=== PATIENT | female | born 1940 | race Caucasian/White ===

== ENCOUNTER → 2016-08-05 | Outpatient (CLI) | payer MEDICARE, OTHER | LOC: RAD 09:58 | PROVIDERS: ATTEND Urology | DX: R31.29 Other microscopic hematuria (principal) | CPT/HCPCS: 74178; 82565 ==

== ENCOUNTER 2018-10-10 18:29 | Emergency (ER) | payer MEDICARE, OTHER ==
--- NOTE | 2018-10-10 20:14 | ER Document Report ---
ED Medical Screen (RME) - General Chief Complaint: Fall Injury Stated Complaint: FALL Time Seen by Provider: 10/10/18 20:12 Primary Care Provider: MERT MILES [Primary Care Provider] - Follow up as needed Mode of Arrival: Medic Information source: Patient TRAVEL OUTSIDE OF THE [place] IN LAST 30 DAYS: No - HPI Patient complains to provider of: fall- hit head Onset: Just prior to arrival - pt tripped at home and hit head. No LOC. EMS transported here for further evaluation - Related Data Allergies/Adverse Reactions: No Known Drug Allergies Allergy (Verified 11/19/15 18:47) Past Medical History Pulmonary Medical History: Reports: Hx Asthma GI Medical History: Reports: Hx Diverticulitis, Hx Gastroesophageal Reflux Disease, Hx Irritable Bowel. Denies: Hx Crohn's Disease, Hx Ulcerative Colitis Musculoskeltal Medical History: Reports Hx Arthritis, Reports Hx Fibromyalgia Psychiatric Medical History: Reports: Hx Depression Past Surgical History: Reports: Hx Abdominal Surgery - bladder tack, Hx Orthopedic Surgery - back - Immunizations Hx Diphtheria, Pertussis, Tetanus Vaccination: Yes Physical Exam - Vital signs Vitals: Temp Pulse Resp BP Pulse Ox 98.8 F 87 16 134/83 H 96 10/10/18 19:13 10/10/18 19:13 10/10/18 19:13 10/10/18 19:13 10/10/18 19:13 Course - Vital Signs Vital signs: Temp Pulse Resp BP Pulse Ox 98.8 F 87 16 134/83 H 96 10/10/18 19:13 10/10/18 19:13 10/10/18 19:13 10/10/18 19:13 10/10/18 19:13 Doctor's Discharge - Discharge Referrals: MERT MILES [Primary Care Provider] - Follow up as needed
--- NOTE | 2018-10-10 21:21 | RADIOLOGY REPORT (SQ) ---
EXAM DESCRIPTION: CT HEAD WITHOUT IV CONTRAST COMPLETED DATE/TME: 10/10/2018 20:12 CLINICAL HISTORY: 77 years, Female, fall This exam was performed according to our departmental dose-optimization program which includes automated exposure control, adjustment of the mA and/or kVp according to patient size and/or use of iterative reconstruction technique where applicable. Findings: No acute intracranial hemorrhage, mass effect or midline shift. Ventricles and subarachnoid spaces are mildly dilated consistent with cerebral atrophy. Mild patchy hypodense areas in the periventricular white matter of both cerebral hemispheres consistent with chronic small vessel ischemic changes. Visualized paranasal sinuses and the mastoid air cells are clear. The skull is intact. IMPRESSION: No acute intracranial hemorrhage. Mild chronic ischemic changes.
--- NOTE | 2018-10-10 22:08 | ER Document Report ---
ED General - General Chief Complaint: Fall Injury Stated Complaint: FALL Time Seen by Provider: 10/10/18 20:12 Primary Care Provider: MERT MILES [Primary Care Provider] - Follow up as needed Mode of Arrival: Medic Notes: Patient is a 77-year-old female who presents with complaint of trip and fall. She says she did fall and hit her head. She has swelling on her forehead. She does note swelling over the lip. No pain with extraocular motion of the eyes. She did also put her hands out to catch herself. Says she has little soreness over the ulnar aspect of her hand but she is able to fully flex and extend her fingers. No pain into the wrist. No other complaints at this time patient denies any pain to the hips or legs. Says the fall was mechanical. TRAVEL OUTSIDE OF THE [place] IN LAST 30 DAYS: No - Related Data Allergies/Adverse Reactions: No Known Drug Allergies Allergy (Verified 11/19/15 18:47) Past Medical History - General Information source: Patient - Social History Smoking Status: Never Smoker Frequency of alcohol use: None Drug Abuse: None Family History: Reviewed & Not Pertinent Patient has suicidal ideation: No Patient has homicidal ideation: No Pulmonary Medical History: Reports: Hx Asthma Renal/ Medical History: Denies: Hx Peritoneal Dialysis GI Medical History: Reports: Hx Diverticulitis, Hx Gastroesophageal Reflux Disease, Hx Irritable Bowel. Denies: Hx Crohn's Disease, Hx Ulcerative Colitis Musculoskeletal Medical History: Reports Hx Arthritis, Reports Hx Fibromyalgia Psychiatric Medical History: Reports: Hx Depression Past Surgical History: Reports: Hx Abdominal Surgery - bladder tack, Hx Orthopedic Surgery - back - Immunizations Hx Diphtheria, Pertussis, Tetanus Vaccination: Yes Hx Pneumococcal Vaccination: 08/03/10 Review of Systems - Review of Systems Notes: My Normal Review Basic REVIEW OF SYSTEMS: CONSTITUTIONAL : Denies fever, chills, or sweats. Denies recent illness. CARDIOVASCULAR: Denies chest pain. RESPIRATORY: Denies cough, cold, or chest congestion. Denies shortness of breath, difficulty breathing, or wheezing. GASTROINTESTINAL: Denies abdominal pain. Denies nausea, vomiting, or diarrhea. MUSCULOSKELETAL: Mild pain in hands. SKIN: Denies rash or skin lesions. NEUROLOGICAL: Denies altered mental status or loss of consciousness. mild headache. Denies weakness or paralysis or loss of use of either side. Denies problems with gait or speech. Denies sensory or motor loss. ALL OTHER SYSTEMS REVIEWED AND NEGATIVE. Physical Exam - Vital signs Vitals: Temp Pulse Resp BP Pulse Ox 98.8 F 87 16 134/83 H 96 10/10/18 19:13 10/10/18 19:13 10/10/18 19:13 10/10/18 19:13 10/10/18 19:13 - Notes Notes: General Appearance: Well nourished, alert, cooperative, no acute distress, no obvious discomfort. Vitals: reviewed, See vital signs table. Head: Small amount of swelling above the right eyebrow. Eyes: PERRL, EOMI, Conjuctiva clear Mouth: No decreasd moisture Lungs: No wheezing, No rales, No rhonci, No accessory muscle use, good air exchange bilaterally. Heart: Normal rate, Regular rythm, No murmur, no rub Neck: Patient is not have any significant pain to palpation of her neck. She says she has some chronic arthritis but no new pain with palpation of the neck. No step-offs deformities or swelling to the neck. Back: No significant tenderness of thoracic or lumbar spine. Abdomen: Normal BS, soft, No rigidity, No abdominal tenderness, No guarding, no rebound, no abdominal masses, no organomegaly Extremities: strength 5/5 in all extremities, good pulses in all extremities, no swelling to the hyperthenar eminence of the right hand. No significant pain to palpation of the right hand. Left hand has a small amount of pain to palpation over the fifth metacarpal however is very minimal and there is no obvious deformity the patient is able to fully flex and extend her fingers without difficulty. No pain to palpation of either wrist. Remainder of extremities are nontender. Patient is full range of motion of hips and knees without pain. Skin: warm, dry, appropriate color, no rash Neuro: speech clear, oriented x 3, normal affect, responds appropriately to questions. Cranial nerves II through XII are intact. Distal sensation intact. Patient moves all extremities without difficulty. Course - Re-evaluation Re-evalutation: 10/10/18 22:07 Patient has some bruising over the forehead on the right side. Lip is swelling of his over the superior orbit however the patient has no pain with extraocular motion and no signs of trauma to the eye with remainder of the face except for small bruising on the lip. She is able to fully open and close her jaw without pain or difficulty. She looks well. CT scan of the head is negative. She has some chronic arthritis in her neck but no new pain from the fall and she is full range of motion of her neck without difficulty. The only other area that she has pain on exam she has a bit of pain in her right hand on the ulnar aspect however she does not have significant pain when I pushed firmly over the metacarpal bones and she says that the pain is just mild. She also has full range of motion of all the fingers of both hands and good opposition with the thumb at the pinky finger. I do not feel she needs an x-ray at this time. Wrist is nontender. No scaphoid tenderness on either wrist. At this time for the patient states be discharged home. I told her that despite having a normal CT scan that some people on rare occasions can still have a delayed bleed on the brain therefore she should have a low threshold to return to the ER if she has severe headache or vomiting or feels unwell in any way. Patient agrees with plan and will be discharged home. Dictation of this chart was performed using voice recognition software; therefore, there may be some unintended grammatical errors. - Vital Signs Vital signs: Temp Pulse Resp BP Pulse Ox 97.7 F 91 18 111/80 99 10/10/18 22:28 10/10/18 22:28 10/10/18 22:28 10/10/18 22:28 10/10/18 22:28 Discharge - Discharge Clinical Impression: Minor head injury Qualifiers: Encounter type: initial encounter Qualified Code(s): S09.90XA - Unspecified injury of head, initial encounter Condition: Good Disposition: HOME, SELF-CARE Additional Instructions: Your CT scan today was normal. Despite having a normal CT scan you should still have a low threshold to return to the ER if you have severe headache or vomiting or feel unwell in any way. Please follow-up with your doctor this week as scheduled for reevaluation. Return to the ER if you have any further concerns. Referrals: MERT MILES [Primary Care Provider] - Follow up as needed
[2018-10-10 23:37] VITALS: BP 111/80
== END 2018-10-10 22:30 | disposition home or self-care (01) ==
LOC: ER 18:29
DX: S09.90XA Unspecified injury of head, initial encounter (principal); R22.0 Localized swelling, mass and lump, head; M79.641 Pain in right hand; W01.0XXA Fall on same level from slipping, tripping and stumbling without subsequent striking against object, initial encounter
CPT/HCPCS: 70450; 99283

== ENCOUNTER 2019-08-25 10:04 | Emergency (ER) | payer MEDICARE, OTHER ==
--- NOTE | 2019-08-25 10:21 | ER Document Report ---
ED Medical Screen (RME) - General Chief Complaint: Head Injury Stated Complaint: FALL/HEAD INJURY Time Seen by Provider: 08/25/19 10:14 Primary Care Provider: MERT MILES [Primary Care Provider] - Follow up as needed Information source: Patient Notes: Patient states that she tripped and fell 2 days ago hitting her face on the rug. Patient complains of anterior chest pain after the fall, right shoulder pain, right facial pain bruising and swelling. Patient denies any loss of consciousness nausea or vomiting. Patient does take Eliquis after having a previous PE. I have greeted and performed a rapid initial assessment of this patient. A comprehensive ED assessment and evaluation of the patient, analysis of test results and completion of the medical decision making process will be conducted by additional ED providers. TRAVEL OUTSIDE OF THE [place] IN LAST 30 DAYS: No - Related Data Allergies/Adverse Reactions: No Known Drug Allergies Allergy (Verified 11/27/18 15:37) Home Medications: Eliquis Past Medical History - Social History Frequency of alcohol use: None Drug Abuse: None Pulmonary Medical History: Reports: Hx Asthma Renal/ Medical History: Denies: Hx Peritoneal Dialysis GI Medical History: Reports: Hx Diverticulitis, Hx Gastroesophageal Reflux Disease, Hx Irritable Bowel. 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 Anterior chest wall tenderness, no ecchymosis Course - Vital Signs Vital signs: Temp Pulse Resp BP Pulse Ox 97.6 F 103 H 18 153/76 H 95 08/25/19 10:08/25/19 10:08/25/19 10:08/25/19 10:08/25/19 10:09 Doctor's Discharge - Discharge Referrals: MERT MILES [Primary Care Provider] - Follow up as needed
--- NOTE | 2019-08-25 11:21 | RADIOLOGY REPORT (SQ) ---
EXAM DESCRIPTION: CT HEAD WITHOUT COMPLETED DATE/TIME: 08/25/2019 11:05 am REASON FOR STUDY: fall, head injury COMPARISON: 10/10/2018. TECHNIQUE: Axial images acquired through the brain without intravenous contrast. Images reviewed wi th bone, brain and subdural windows. Additional sagittal and coronal reconstructions were generated. Images stored on PACS. All CT scanners at this facility use dose modulation, iterative reconstruction, and/or weight based d osing when appropriate to reduce radiation dose to as low as reasonably achievable (ALARA). [facility]: Dose Right [facility]: CareDose [facility]: Dose Right [facility]: Teradose 4D [facility]: Synker RADIATION DOSE: CT Rad equipment meets quality standard of care and radiation dose reduction techniq ues were employed. CTDIvol: 53.2 mGy. DLP: 1044 mGy-cm. mGy. LIMITATIONS: None. FINDINGS: VENTRICLES: Prominent. CEREBRUM: No masses. No hemorrhage. No midline shift. Areas of low density in the white matter mos t likely due to chronic micro-vascular ischemic change. No evidence for acute infarction. CEREBELLUM: No masses. No hemorrhage. No alteration of density. No evidence for acute infarction. EXTRAAXIAL SPACES: Mild age-related involutional change. No fluid collections. No masses. ORBITS AND GLOBE: No intra- or extraconal masses. Normal contour of globe without masses. CALVARIUM: No fracture. PARANASAL SINUSES: No fluid or mucosal thickening. SOFT TISSUES: No mass or hematoma. OTHER: No other significant finding. IMPRESSION: MILD CHRONIC CHANGES OF ATROPHY AND MICROVASCULAR ISCHEMIA. NO ACUTE PROCESS. EVIDENCE OF ACUTE STROKE: NO. TECHNICAL DOCUMENTATION: JOB ID: [id number] Quality ID # [id number]: Final reports with documentation of one or more dose reduction techniques (e.g., Au tomated exposure control, adjustment of the mA and/or kV according to patient size, use of iterative reconstruction technique) 2010 [employer]- All Rights Reserved Reading location - IP/workstation name: [email or web address]
--- NOTE | 2019-08-25 11:23 | RADIOLOGY REPORT (SQ) ---
EXAM DESCRIPTION: CT FACIAL AREA WITHOUT COMPLETED DATE/TIME: 08/25/2019 11:05 am REASON FOR STUDY: fall, cp COMPARISON: None. TECHNIQUE: Noncontrasted images through the facial bones and orbits windowed for bone and soft tissu e. Additional coronal and sagittal reconstructed images reviewed. All images stored on PACS. All CT scanners at this facility use dose modulation, iterative reconstruction, and/or weight based d osing when appropriate to reduce radiation dose to as low as reasonably achievable (ALARA). [facility]: Dose Right [facility]: CareDose [facility]: Dose Right [facility]: Teradose 4D [facility]: Adioso RADIATION DOSE: CT Rad equipment meets quality standard of care and radiation dose reduction techniq ues were employed. CTDIvol: 30.4 mGy. DLP: 555 mGy-cm. mGy. LIMITATIONS: None. FINDINGS: FACIAL BONES: No fracture or bone lesion. ORBITS: Intact. No fracture. Symmetric intact globes and retroorbital soft tissues. PARANASAL SINUSES: No fluid. Mucosal nodule in the right maxillary sinus. No nasal polyps. Maxillar y sinus outlets are patent. SOFT TISSUES: Soft tissue swelling overlying the right orbit. INFERIOR BRAIN: Limited view. No acute findings. OTHER: No other significant finding. IMPRESSION: SOFT TISSUE SWELLING OVERLYING THE RIGHT ORBIT. NO FRACTURE OR OTHER ACUTE FINDINGS. TECHNICAL DOCUMENTATION: JOB ID: [id number] Quality ID # [id number]: Final reports with documentation of one or more dose reduction techniques (e.g., Au tomated exposure control, adjustment of the mA and/or kV according to patient size, use of iterative reconstruction technique) 2010 [employer]- All Rights Reserved Reading location - IP/workstation name: [email or web address]
--- NOTE | 2019-08-25 11:29 | RADIOLOGY REPORT (SQ) ---
EXAM DESCRIPTION: SHOULDER RIGHT 2 OR MORE VIEWS COMPLETED DATE/TIME: 08/25/2019 11:21 am REASON FOR STUDY: fall, r shoulder injury COMPARISON: None. NUMBER OF VIEWS: Three views. TECHNIQUE: Internal rotation, external rotation, and Y view images acquired of the right shoulder. LIMITATIONS: None. FINDINGS: MINERALIZATION: Normal. BONES: No acute fracture. No worrisome bone lesions. JOINTS: No dislocation. VISUALIZED LUNGS AND RIBS: No pneumothorax. No rib fracture. SOFT TISSUES: No radiopaque foreign body. OTHER: No other significant finding. IMPRESSION: NEGATIVE STUDY OF THE RIGHT SHOULDER. NO RADIOGRAPHIC EVIDENCE OF ACUTE INJURY. TECHNICAL DOCUMENTATION: JOB ID: [id number] [employer]- All Rights Reserved Reading location - IP/workstation name: [email or web address]
--- NOTE | 2019-08-25 12:00 | RADIOLOGY REPORT (SQ) ---
EXAM DESCRIPTION: CHEST 2 VIEWS COMPLETED DATE/TIME: 08/25/2019 10:52 am REASON FOR STUDY: fall, cp COMPARISON: 11/19/2015 EXAM PARAMETERS: NUMBER OF VIEWS: two views TECHNIQUE: Digital Frontal and Lateral radiographic views of the chest acquired. RADIATION DOSE: NA LIMITATIONS: none FINDINGS: LUNGS AND PLEURA: No opacities, masses or pneumothorax. No pleural effusion. MEDIASTINUM AND HILAR STRUCTURES: No masses or contour abnormalities. HEART AND VASCULAR STRUCTURES: Heart normal size. No evidence for failure. BONES: No acute findings. HARDWARE: None in the chest. OTHER: No other significant finding. IMPRESSION: NO ACUTE RADIOGRAPHIC FINDING IN THE CHEST. TECHNICAL DOCUMENTATION: JOB ID: [id number] [employer]- All Rights Reserved Reading location - IP/workstation name: [email or web address]
--- NOTE | 2019-08-25 12:52 | EKG REPORT ---
SEVERITY:- OTHERWISE NORMAL ECG - SINUS TACHYCARDIA LEFT AXIS DEVIATION : Confirmed by: Ramy Swanson MD 25-Aug-2019 12:51:18
--- NOTE | 2019-08-25 12:56 | ER Document Report ---
ED General - General Chief Complaint: Head Injury Stated Complaint: FALL/HEAD INJURY Time Seen by Provider: 08/25/19 10:14 Primary Care Provider: ALICE HOWARD MD [Primary Care Provider] - Follow up tomorrow (prn) MERT MILES [NO LOCAL MD] - Follow up in 3-5 days (prn) TRAVEL OUTSIDE OF THE [place] IN LAST 30 DAYS: No - HPI Notes: 78-year-old female presents emergency room for evaluation of right orbital pain with a dull headache 2 days after tripping while she was at her house. Patient is on blood thinners for a pulmonary embolism that she was diagnosed with in November 2018. Denies worse headache of her life . patient called her primary care doctor today, they advised her to go the emergency room over the phone for evaluation since she is on blood thinners after falling. Patient denies any head trauma, states she hit her face on the side where her glasses were which did create some ecchymosis around her orbital bone. Denies any change in level consciousness. Patient states she did land on the right side of her face with her glasses, and as well on her chest. Denies fevers, chills, chest pain,palpitations, shortness of breath, dyspnea, nausea, vomiting, diarrhea, abdominal pain, hematuria,blurred vision, double vision, loss of vision, speech changes, LH, dizziness, syncope, wheezing, ST, URI, neck pain, weakness, bowel or bladder dysfunction, saddle anesthesia, numbness or tingling in bilateral upper or lower extremities equally, muscle paralysis, weakness in bilateral upper or lower extremities equally or rash. - Related Data Allergies/Adverse Reactions: No Known Drug Allergies Allergy (Verified 11/27/18 15:37) Home Medications: Eliquis Past Medical History - General Information source: Patient - Social History Smoking Status: Unknown if Ever Smoked Frequency of alcohol use: None Drug Abuse: None Family History: Reviewed & Not Pertinent Patient has suicidal ideation: No Patient has homicidal ideation: No Pulmonary Medical History: Reports: Hx Asthma Renal/ Medical History: Denies: Hx Peritoneal Dialysis GI Medical History: Reports: Hx Diverticulitis, Hx Gastroesophageal Reflux Disease, Hx Irritable Bowel. Denies: Hx Crohn's Disease, Hx Ulcerative Colitis Musculoskeletal Medical History: Reports Hx Arthritis - RA/OA, Reports Hx Fibromyalgia Psychiatric Medical History: Reports: Hx Depression Past Surgical History: Reports: Hx Abdominal Surgery - bladder tack, Hx Orthopedic Surgery - back - Immunizations Hx Diphtheria, Pertussis, Tetanus Vaccination: Yes Hx Pneumococcal Vaccination: 08/03/10 Review of Systems - Review of Systems Constitutional: No symptoms reported EENT: No symptoms reported Cardiovascular: No symptoms reported Respiratory: No symptoms reported Gastrointestinal: No symptoms reported Genitourinary: No symptoms reported Female Genitourinary: No symptoms reported Musculoskeletal: See HPI Skin: No symptoms reported Hematologic/Lymphatic: No symptoms reported Neurological/Psychological: See HPI Physical Exam - Vital signs Vitals: Temp Pulse Resp BP Pulse Ox 97.6 F 103 H 18 153/76 H 95 08/25/19 10:09 08/25/19 10:09 08/25/19 10:08/25/19 10:08/25/19 10:09 - Notes Notes: PHYSICAL EXAMINATION: reviewed vital signs by RN GENERAL: Well-appearing, well-nourished and in no acute distress. HEAD: Atraumatic, normocephalic. Ecchymosis to right orbital area, no open wounds or drainage. EYES: Pupils equal round and reactive to light, extraocular movements intact, conjunctiva are normal. ENT: Nares patent, oropharynx clear without exudates. Moist mucous membranes. NECK: Normal range of motion, supple without lymphadenopathy. full APROM of cervical spine, no noted domingo cervical spinal tenderness on palpation from C4-C5, but noted parapsinal tenderness from C5-C6 on right. negative spurlings test. Boilermaker Pipe Fitter + 2 bilaterally and equally. Dtr +2 bilaterally and equally in BUE. Perrla, full eomi. Face symmetrical. No rashes observed. Point tenderness to right paraspinal muscles near C6. No lymphadenopathy. Full APROM with shoulders. TM intact bilaterally. No meningismus. No noted lymphadenopathy. LUNGS: Breath sounds clear to auscultation bilaterally and equal. No wheezes rales or rhonchi. HEART: Regular rate and rhythm without murmurs ABDOMEN: Soft, nontender, nondistended abdomen. No guarding, no rebound. No masses appreciated. Female : deferred Musculoskeletal: Normal range of motion, no pitting or edema. No cyanosis. Tenderness to right shoulder joint on palpation, full range of motion of shoulder, muscle strength 5 out of 5 bilateral upper extremities equally. Boilermaker Pipe Fitter +2 in bilateral upper extremities equally, full motor and sensory function of bilateral upper extremities equally. Normal abduction abduction of shoulder. Right elbow exam normal, no tenderness on palpation of the joint. NEUROLOGICAL: Cranial nerves grossly intact. Normal speech, normal gait. Normal sensory, motor exams. PERRLA, EOMI. Full motor and sensory function throughout. Boilermaker Pipe Fitter + 2 equal bilaterally in BUE. Tongue midline. No pronator drift. No ataxia. Neck with APROM. Raises eyebrows. Strength is 5 out of 5 in bilateral upper and lower extremities equally.Speaks in full sentences. No weakness on one side. Romberg gait steady able to walk straight line. Able to recall 5 objects. PSYCH: Normal mood, normal affect. SKIN: Warm, Dry, normal turgor, no rashes or lesions noted. Course - Re-evaluation Re-evalutation: 08/25/19 13:23 Afebrile vital stable no distress. Nurse's notes reviewed. EKG negative for STEMI, no ST segment changes. CT head negative for acute bleed or fracture and an CT of orbital bone was negative for acute fracture. Right shoulder and head negative for acute fracture dislocation, chest x-ray negative for pneumonia, pneumothorax, rib fractures or other concerning findings. Patient's neurological exam is normal, no focal neurological deficit noted. Patient does not have a step-off noted on her right orbital area. Discussed with patient that she needs to continually follow with her primary care provider within 24 to 48 hours, discussed concussion protocol, discussed concussion protocol such as being woken up every hour by someone you live with, be asked orientation questions and to call 911 if any neurological changes occur such as speech changes, weakness on one side, unable to orient, nausea, vomiting, or severe headache, etc. pt verbalized understanding of this care and agreed to plan of care. Patient will be staying with her daughter for the remainder of the next 3 to 4 days who will be performing concussion protocol with patient. discussed worrisome symptoms as well as reasons for return over what time frame. patient states understanding and is agreeable with plan. Vital signs are stable.After performing a Medical Screening Examination, I estimate there is LOW risk for INTRACRANIAL HEMORRHAGE, UNSTABLE SPINE FRACTURE, CENTRAL CORD SYNDROME, CAUDA EQUINA, THORACIC AORTIC DISSECTION, PNEUMOTHORAX, PERFORATED BOWEL, RUPTURED ABDOMINAL AORTIC ANEURYSM, ACUTE TENDON RUPTURE, COMPARTMENT SYNDROME, or OPEN FRACTURE, thus I consider the discharge disposition reasonable. Also, there is no evidence or peritonitis, sepsis, or toxicity. I have reevaluated this patient multiple times and no significant life threatening changes are noted. The patient and I have discussed the diagnosis and risks, and we agree with discharging home to follow-up with their primary doctor with the understanding that symptoms and presentations can change. We also discussed returning to the Emergency Department immediately if new or worsening symptoms occur. We have discussed the symptoms which are most concerning (e.g., severe headache, confusion, chest pain, SOB, bloody stool, fever, changing or worsening pain, vomiting) that necessitate immediate return. Patient and her daughter was agreeable with this plan of care and agree with plan of care. - Vital Signs Vital signs: Temp Pulse Resp BP Pulse Ox 98.3 F 94 18 129/74 H 96 08/25/19 13:22 08/25/19 13:22 08/25/19 13:22 08/25/19 13:22 08/25/19 13:22 Discharge - Discharge Clinical Impression: Closed head injury, Facial trauma, Cervical pain (neck), Right shoulder pain Condition: Stable Disposition: HOME, SELF-CARE Instructions: Concussion ([facility]), Post-Concussion Syndrome ([facility]), Myalagia (Muscle Pain) ([facility]), Eye Socket Trauma ([facility]) Additional Instructions: CT of your head, orbital bones as well as the x-ray of your right shoulder and chest x-ray were negative for acute fractures, dislocations or findings. Take Tylenol as needed for pain control, apply ice 20 minutes on 20 minutes off several times a day. Discussed concussion protocol such as being woken up every hour by someone you live with, be asked orientation questions and to call 911 if any neurological changes occur such as speech changes, weakness on one side, unable to orient, nausea, vomiting, or severe headache, etc. pt verbalized understanding of this care and agreed to plan of care. discussed worrisome symptoms as well as reasons for return over what time frame. patient states understanding and is agreeable with plan. Follow-up with your primary care provider within the next 24 hours for reevaluation. Have family stay with you. Avoid any ibuprofen. Return immediately for any new or worsening symptoms. Follow up with primary care provider, call tomorrow to make followup appointment. Referrals: ALICE HOWARD MD [Primary Care Provider] - Follow up tomorrow (prn) MERT MILES [NO LOCAL MD] - Follow up in 3-5 days (prn) SHA MAHER DO [ACTIVE STAFF] - Follow up as needed
[2019-08-25 13:27] VITALS: BP 129/74
== END 2019-08-25 13:27 | disposition home or self-care (01) ==
LOC: ER 10:04
DX: S00.11XA Contusion of right eyelid and periocular area, initial encounter (principal); M54.2 Cervicalgia; M25.511 Pain in right shoulder; R51 Headache; W01.0XXA Fall on same level from slipping, tripping and stumbling without subsequent striking against object, initial encounter; Y92.009 Unspecified place in unspecified non-institutional (private) residence as the place of occurrence of the external cause; I26.99 Other pulmonary embolism without acute cor pulmonale; Z79.01 Long term (current) use of anticoagulants; J45.909 Unspecified asthma, uncomplicated
CPT/HCPCS: 70450; 70486; 71046; 93005; 93010; 99284

== ENCOUNTER 2019-10-03 15:24 | Emergency (ER) | payer MEDICARE, OTHER ==
--- NOTE | 2019-10-03 17:02 | ER Document Report ---
ED Medical Screen (RME) - General Chief Complaint: Shortness Of Breath Stated Complaint: ELEVATED HEARTRATE/HEAT FLASHES Time Seen by Provider: 10/03/19 16:38 Primary Care Provider: ALICE HOWARD MD [Primary Care Provider] - Follow up as needed Notes: Patient is a 78-year-old female presents emergency department with a chief complaint of chest pressure. Patient reports she went and saw her primary care physician today for this complaint. Patient reports she has had some shortness of breath and chest pressure that is been intermittent for months. She states she sought care today as her kept nagging her. Patient reports her biggest concern is the shortness of breath. Patient is on Eliquis. Patient reports last November she was diagnosed with a pulmonary embolism. Patient reports that she was cleared from this but continue to take the Eliquis as prescribed. TRAVEL OUTSIDE OF THE [place] IN LAST 30 DAYS: No - Related Data Allergies/Adverse Reactions: No Known Drug Allergies Allergy (Verified 10/03/19 16:39) Past Medical History Pulmonary Medical History: Reports: Hx Asthma Renal/ Medical History: Denies: Hx Peritoneal Dialysis GI Medical History: Reports: Hx Diverticulitis, Hx Gastroesophageal Reflux Disease, Hx Irritable Bowel. 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, Reports Hx Fibromyalgia Psychiatric Medical History: Reports: Hx Depression Past Surgical History: Reports: Hx Abdominal Surgery - bladder tack, Hx Orthopedic Surgery - back - Immunizations Hx Diphtheria, Pertussis, Tetanus Vaccination: Yes Physical Exam - Vital signs Vitals: Temp Pulse Resp BP Pulse Ox 98.0 F 107 H 20 153/80 H 95 10/03/19 15:35 10/03/19 15:35 10/03/19 15:35 10/03/19 15:35 10/03/19 15:35 - Cardiovascular Rhythm: Tachycardia Heart sounds: Normal auscultation, S1 appreciated, S2 appreciated Course - Re-evaluation Re-evalutation: 10/03/19 17:01 We will initiate the chest pain work-up to include a troponin as well as a chest x-ray. I did inform the patient that she may end up receiving a CT of the chest to rule out blood clot. I have greeted and performed a rapid initial assessment of this patient. A comprehensive ED assessment and evaluation of the patient, analysis of test results and completion of the medical decision making process will be conducted by additional ED providers. - Vital Signs Vital signs: Temp Pulse Resp BP Pulse Ox 98.0 F 107 H 20 153/80 H 95 10/03/19 15:35 10/03/19 15:35 10/03/19 15:35 10/03/19 15:35 10/03/19 15:35 Doctor's Discharge - Discharge Referrals: ALICE HOWARD MD [Primary Care Provider] - Follow up as needed
[2019-10-03 17:30] LABS: ABSOLUTE EOSINOPHILS # (AUTO) 0.1 10^3/uL (0.0-0.6); ABSOLUTE LYMPHOCYTES (AUTO) 1.8 10^3/uL (0.5-4.7); ABSOLUTE MONOCYTES (AUTO) 0.6 10^3/uL (0.1-1.4); ABSOLUTE NEUT (AUTO) 6.1 10^3/uL (1.7-8.2); BASOPHILS % (AUTO) 0.4 % (0-2); EOSINOPHILS % (AUTO) 0.9 % (0-6); HEMATOCRIT 42.8 % (36.0-47.0); HEMOGLOBIN 14.7 g/dL (12.0-15.5); LYMPHOCYTES % (AUTO) 20.5 % (13-45); MEAN CORPUSCULAR HEMOGLOBIN 35.8 pg (27.0-33.4); MEAN CORPUSCULAR HGB CONC 34.3 g/dL (32.0-36.0); MEAN CORPUSCULAR VOLUME 104 fl (80-97); MONOCYTES % (AUTO) 7.1 % (3-13); PLATELET COUNT 276 10^3/uL (150-450); RED BLOOD COUNT 4.11 10^6/uL (3.72-5.28); RED CELL DISTRIBUTION WIDTH 15.3 % (11.5-14.0); SEGMENTED NEUTROPHILS % (AUTO) 71.1 % (42-78); TOTAL CELLS COUNTED % (AUTO) 100 %; WHITE BLOOD COUNT 8.6 10^3/uL (4.0-10.5)
[2019-10-03 17:46] LABS: ALBUMIN 4.5 g/dL (3.5-5.0); ALKALINE PHOSPHATASE 63 U/L (38-126); ANION GAP 9 (5-19); ASPARTATE AMINO TRANSFERASE 29 U/L (14-36); BILIRUBIN,DIRECT 0.1 mg/dL (0.0-0.4); BILIRUBIN,TOTAL 0.9 mg/dL (0.2-1.3); BLOOD UREA NITROGEN 24 mg/dL (7-20); CALCIUM 9.4 mg/dL (8.4-10.2); CARBON DIOXIDE 29 mmol/L (22-30); CHLORIDE 98 mmol/L (98-107); GLUCOSE 129 mg/dL (75-110); POTASSIUM 4.4 mmol/L (3.6-5.0); TOTAL PROTEIN 7.5 g/dL (6.3-8.2)
--- NOTE | 2019-10-03 17:50 | EKG REPORT ---
SEVERITY:- OTHERWISE NORMAL ECG - SINUS TACHYCARDIA BORDERLINE LEFT AXIS DEVIATION : Confirmed by: Ramy Swanson MD 03-Oct-2019 17:50:11
[2019-10-03] MEDS ORDERED: ASPIRIN 81 MG TABLET, CHEWABLE PO ONE (17:53)
--- NOTE | 2019-10-03 17:53 | RADIOLOGY REPORT (SQ) ---
EXAM DESCRIPTION: CHEST 2 VIEWS COMPLETED DATE/TIME: 10/03/2019 5:23 pm REASON FOR STUDY: chest pain COMPARISON: 08/25/2019 EXAM PARAMETERS: NUMBER OF VIEWS: two views TECHNIQUE: Digital Frontal and Lateral radiographic views of the chest acquired. RADIATION DOSE: NA LIMITATIONS: none FINDINGS: LUNGS AND PLEURA: No opacities, masses or pneumothorax. No pleural effusion. MEDIASTINUM AND HILAR STRUCTURES: No masses or contour abnormalities. HEART AND VASCULAR STRUCTURES: Heart normal size. No evidence for failure. BONES: No acute findings. HARDWARE: None in the chest. OTHER: No other significant finding. IMPRESSION: NO ACUTE RADIOGRAPHIC FINDING IN THE CHEST. TECHNICAL DOCUMENTATION: JOB ID: [id number] 2010 [employer]- All Rights Reserved Reading location - IP/workstation name: [email or web address]
--- NOTE | 2019-10-03 19:07 | ER Document Report ---
ED General - General TRAVEL OUTSIDE OF THE [place] IN LAST 30 DAYS: No <KWESI BURT - Last Filed: 10/03/19 20:07> <ENEDINA RUGGIERO - Last Filed: 10/04/19 06:12> - General Chief Complaint: Shortness Of Breath Stated Complaint: ELEVATED HEARTRATE/HEAT FLASHES Time Seen by Provider: 10/03/19 16:38 Primary Care Provider: ALICE HOWARD MD [Primary Care Provider] - Follow up in 3-5 days VINCENZO LEIVA MD [ACTIVE STAFF] - Follow up in 3-5 days (Dr Leiva will contact you this week for an appointment) Notes: 78-year-old female with history of PE presents for intermittent chest pressure and shortness of breath that is been intermittent for the past few months. Patient went to her primary care doctor today and was sent to the ER for a work- up. Patient states that she is still taking Eliquis. Patient denies history of hypertension, diabetes, hyperlipidemia, smoker (either present or former). Patient states with her chest pressure and shortness of breath she will sometimes have nausea/vomiting and dizziness. (KWESI BURT) - Related Data Allergies/Adverse Reactions: No Known Drug Allergies Allergy (Verified 10/03/19 16:39) Past Medical History - Social History Smoking Status: Never Smoker Family History: Reviewed & Not Pertinent Patient has suicidal ideation: No Patient has homicidal ideation: No Pulmonary Medical History: Reports: Hx Asthma Renal/ Medical History: Denies: Hx Peritoneal Dialysis GI Medical History: Reports: Hx Diverticulitis, Hx Gastroesophageal Reflux Disease, Hx Irritable Bowel. Denies: Hx Crohn's Disease, Hx Ulcerative Colitis Musculoskeletal Medical History: Reports Hx Arthritis - RA/OA, Reports Hx Fibromyalgia Psychiatric Medical History: Reports: Hx Depression Past Surgical History: Reports: Hx Abdominal Surgery - bladder tack, Hx Orthopedic Surgery - back - Immunizations Hx Diphtheria, Pertussis, Tetanus Vaccination: Yes Hx Pneumococcal Vaccination: 08/03/10 <KWESI BURT - Last Filed: 10/03/19 20:07> Review of Systems <KWESI BURT - Last Filed: 10/03/19 20:07> - Review of Systems Notes: Constitutional: Negative for fever. HENT: Negative for sore throat. Eyes: Negative for visual changes. Cardiovascular: Positive for chest pain. Respiratory: Positive for shortness of breath. Gastrointestinal: Positive for nausea/vomiting. Negative for abdominal pain or diarrhea. Genitourinary: Negative for dysuria. Musculoskeletal: Negative for back pain. Skin: Negative for rash. Neurological: Positive for dizziness. Negative for headaches, weakness or numbness. 10 point ROS negative except as marked above and in HPI. (KWESI BURT) Physical Exam <KWESI BURT - Last Filed: 10/03/19 20:07> - Vital signs Vitals: Temp Pulse Resp BP Pulse Ox 98.0 F 107 H 20 153/80 H 95 10/03/19 15:35 10/03/19 15:35 10/03/19 15:35 10/03/19 15:35 10/03/19 15:35 - Notes Notes: GENERAL: Well-appearing, well-nourished and in no acute distress. HEAD: Atraumatic, normocephalic. EYES: Extraocular movements intact, sclera anicteric, conjunctiva are normal. NECK: Normal range of motion, supple without lymphadenopathy or JVD. LUNGS: Breath sounds clear to auscultation bilaterally and equal. No wheezes rales or rhonchi. HEART: Regular rate and rhythm without murmurs, rubs or gallops. EXTREMITIES: Normal range of motion, no pitting or edema. No clubbing or cyanosis. NEUROLOGICAL: Cranial nerves II through XII grossly intact. Normal speech, normal gait. PSYCH: Normal mood, normal affect. SKIN: Warm, Dry, normal turgor, no rashes or lesions noted. (KWESI BURT) Course - Laboratory Result Diagrams: 10/03/19 17:06 10/03/19 17:06 <KWESI BURT - Last Filed: 10/03/19 20:07> - Laboratory Result Diagrams: 10/03/19 17:06 10/03/19 17:06 - Diagnostic Test Radiology reviewed: Image reviewed, Reports reviewed <ENEDINA RUGGIERO - Last Filed: 10/04/19 06:12> - Re-evaluation Re-evalutation: 10/03/19 nontoxic, well-appearing 78-year-old female presents with intermittent chest pain and dyspnea for a few months. Patient reports no changes with her symptoms. Sometimes she has associated nausea/vomiting and dizziness. Patient was initially found to be tachycardic. EKG shows sinus tachycardia at 108. Patient's chest x-ray is negative. Patient was diagnosed with a PE in November of last year and is still currently taking Eliquis. Lungs clear to auscultation bilaterally. Regular rate and rhythm. PE is otherwise unremarkable. Initial troponin is negative. Pt had a negative nuclear stress test last year. Pt does not see a regular dietary server. HEART score is 3. Discussed initial results with patient and need for CTA chest to rule out PE and for 3-hour troponin. Discussed with patient that if CT angios chest and second troponin is negative we will give her outpatient referral to dietary server, Dr. Vincenzo Leiva. Patient voices understanding and agrees with this plan of care. 10/03/19 19:29 CTA chest negative for PE. 10/03/19 20:07 Sign out given to GEAR TOOTH LAPPING MACHINE OPERATOR Angie Ruggiero. (KWESI BURT) 10/03/19 20:26 Received report from the ED Mario. Patient resting quietly in bed. She reports for the past couple months that she has had some chest pressure that comes and goes. She also complains of extreme shortness of breath. She reports that when she gets out of bed she becomes very short of breath nauseated with this sometimes sweating heavily and her heart beats really fast. She reports her doctor did place her on Cardizem she took it for 1 month but she has not had it since July. Her primary care provider sent her here for evaluation due to the shortness of breath and chest pressure. Denies history of cardiac disease. Patient instructed waiting for the second troponin. 10/03/19 21:55 Second troponin negative. Patient ambulated around the emergency department became a little bit of short of breath but no chest pain no chest pressure. CT negative chest x-ray negative. Discussed patient with Dr. Martinez. She agree's with discharge. Contacted Dr. Leiva, dietary server, he will contact patient this week for an appointment and follow-up visit. Patient and family advised of discharge plan to follow-up with Dr. Leiva all results. They verbalized understanding to all information. (ENEDINA RUGGIERO) - Vital Signs Vital signs: Temp Pulse Resp BP Pulse Ox 98.0 F 107 H 12 138/72 H 95 10/03/19 15:35 10/03/19 15:35 10/03/19 21:01 10/03/19 21:01 10/03/19 21:01 - Laboratory Laboratory results interpreted by me: 10/03/19 10/03/19 17:06 17:06 MCV 104 H MCH 35.8 H RDW 15.3 H Sodium 136.1 L BUN 24 H Glucose 129 H Discharge <KWESI BURT - Last Filed: 10/03/19 20:07> <ENEDINA RUGGIERO - Last Filed: 10/04/19 06:12> - Discharge Clinical Impression: Chest pain Qualifiers: Chest pain type: unspecified Qualified Code(s): R07.9 - Chest pain, unspecified Dyspnea Qualifiers: Dyspnea type: unspecified Qualified Code(s): R06.00 - Dyspnea, unspecified Condition: Stable Disposition: HOME, SELF-CARE Instructions: Chest Pain of Unclear Cause ([facility]) Additional Instructions: You were seen today for chest pain. The exact cause of your pain is unclear. However, based on your cardiac enzyme testing, chest x-ray, and EKG it does not appear that it is from an immediately life-threatening cause at this time. Your CT chest did not show any blood clots in your lungs. Although your testing here is normal is critical that you follow-up with your primary care physician for continued evaluation of this chest pain and possible stress testing. I recommended you see your physician within the next 24-48 hours to be evaluated for consideration of a stress test. Please return to emergency department immediately if you have worsening of your chest pain, shortness of breath, vomiting, become unable to exert yourself due to pain or difficulty breathing, you pass out, or have any pain that radiates into your arms, jaw, or back. Please also return if you have any additional symptoms that are concerning to you. *You have been evaluated for chest pressure, shortness of breath *Follow up with a primary care provider within 3-5 days *Dr Leiva, dietary server, will be contacting you this week for a follow up appointment *Return to ED for worsening condition, changes, needs, concerns Referrals: ALICE HOWARD MD [Primary Care Provider] - Follow up in 3-5 days VINCENZO LEIVA MD [ACTIVE STAFF] - Follow up in 3-5 days (Dr Leiva will contact you this week for an appointment)
--- NOTE | 2019-10-03 19:14 | RADIOLOGY REPORT (SQ) ---
EXAM DESCRIPTION: CTA CHEST COMPLETED DATE/TIME: 10/03/2019 6:27 pm REASON FOR STUDY: chest pain, dyspnea, hx PE COMPARISON: Chest radiograph TECHNIQUE: CT scan of the chest performed using helical scanning technique with dynamic intravenous contrast injection. Images reviewed with lung, soft tissue and bone windows. Reconstructed coronal and sagittal MPR images reviewed. Additional 3 dimensional post-processing performed to develop Maximal Intensity Projection images (GA P). All images stored on PACS. All CT scanners at this facility use dose modulation, iterative reconstruction, and/or weight based d osing when appropriate to reduce radiation dose to as low as reasonably achievable (ALARA). [facility]: Dose Right [facility]: CareDose [facility]: Dose Right [facility]: Teradose 4D [facility]: AngioSlide CONTRAST TYPE AND DOSE: contrast/concentration: Isovue 350.00 mg/ml; Total Contrast Delivered: 66.0 ml; Total Saline Delivered: 67.4 ml Contrast bolus adequate for pulmonary arteries and aorta. RENAL FUNCTION: GFR > 60. RADIATION DOSE: CT Rad equipment meets quality standard of care and radiation dose reduction techniq ues were employed. CTDIvol: 9.9 - 18.7 mGy. DLP: 723 mGy-cm. . LIMITATIONS: None. FINDINGS: LUNGS AND PLEURA: No masses, infiltrates, or pneumothorax. No pleural effusions or pleura l calcifications. AORTA AND GREAT VESSELS: No aneurysm. Contrast bolus not optimized for the aorta. HEART: No pericardial effusion. No significant coronary artery calcifications. PULMONARY ARTERIES: No emboli visualized in the main pulmonary arteries or the segmental branches. HILAR AND MEDIASTINAL STRUCTURES: No identified masses or abnormal nodes. HARDWARE: None in the chest. UPPER ABDOMEN: No significant findings. Limited exam. THYROID AND OTHER SOFT TISSUES: No masses. No adenopathy. BONES: No acute or significant finding. 3D MIPS: Confirm above findings. OTHER: No other significant finding. IMPRESSION: NORMAL CTA OF THE CHEST. NO PULMONARY EMBOLI. COMMENT: Quality ID # [id number]: Final reports with documentation of one or more dose reduction techniques (e.g., Automated exposure control, adjustment of the mA and/or kV according to patient size, use of iterative reconstruction technique) TECHNICAL DOCUMENTATION: JOB ID: [id number] 2010 [email or web address]- All Rights Reserved Reading location - IP/workstation name: [email or web address]
[2019-10-03 21:59] VITALS: BP 138/72
== END 2019-10-03 22:03 | disposition home or self-care (01) ==
LOC: ER 15:24
DX: R07.9 Chest pain, unspecified (principal); R06.00 Dyspnea, unspecified; R06.02 Shortness of breath; R00.0 Tachycardia, unspecified; Z86.711 Personal history of pulmonary embolism
CPT/HCPCS: 93005; 99285; 36415; 84443; 85025; 80053; 84484; 83880; 71046; 71275; 93010; A9270

== ENCOUNTER 2019-12-18 12:02 | Emergency (ER) | payer MEDICARE, OTHER ==
[2019-12-18] MEDS ORDERED: HYDROCODONE/ACETAMINOPHEN 5-325 MG TABLET PO ONE (13:10)
--- NOTE | 2019-12-18 13:33 | RADIOLOGY REPORT (SQ) ---
EXAM DESCRIPTION: KNEE LEFT 4 VIEW IMAGES COMPLETED DATE/TIME: 12/18/2019 12:04 pm REASON FOR STUDY: left knee pain, unable to bear weight. Left Knee was caught in walker. COMPARISON: None. NUMBER OF VIEWS: Four views. TECHNIQUE: AP, lateral, and both oblique radiographic images acquired of the left knee. LIMITATIONS: None. FINDINGS: MINERALIZATION: Osteopenia. BONES: There is no acute fracture or cortical disruption. Marginal osteophytes at the medial and lat eral compartments. Small osteophytes at the patella. JOINT: Joint space narrowing in the medial and lateral compartments. No intra-articular loose body o r joint effusion. SOFT TISSUES: No soft tissue swelling. No radio-opaque foreign body. OTHER: No other significant finding. IMPRESSION: No acute fracture or dislocation of the left knee. Moderate tricompartmental osteoarthr itis. TECHNICAL DOCUMENTATION: JOB ID: [id number] 2010 [employer]- All Rights Reserved Reading location - IP/workstation name: [email or web address]
--- NOTE | 2019-12-18 13:45 | ER Document Report ---
HPI - HPI Time Seen by Provider: 12/18/19 12:27 Pain Level: 1 Notes: 79-year-old female with history of osteoarthritis presenting with complaints of left knee pain. Patient denies any direct trauma, states she got up out of bed this morning and went to put on her slippers when her knee locked up and she felt a pop. She states that she has received multiple injections to this knee for chronic knee pain. - REPRODUCTIVE Reproductive: DENIES: : - MUSCULOSKELETAL Musculoskeletal: REPORTS: Extremity pain Past Medical History - General Information source: Patient - Social History Smoking Status: Never Smoker Chew tobacco use (# tins/day): No Frequency of alcohol use: None Drug Abuse: None Family History: Reviewed & Not Pertinent Patient has homicidal ideation: No Pulmonary Medical History: Reports: Hx Asthma Renal/ Medical History: Denies: Hx Peritoneal Dialysis GI Medical History: Reports: Hx Diverticulitis, Hx Gastroesophageal Reflux Disease, Hx Irritable Bowel. Denies: Hx Crohn's Disease, Hx Ulcerative Colitis Musculoskeletal Medical History: Reports Hx Arthritis - RA/OA, Reports Hx Fibromyalgia Psychiatric Medical History: Reports: Hx Depression Past Surgical History: Reports: Hx Abdominal Surgery - bladder tack, Hx Orthopedic Surgery - back - Immunizations Hx Diphtheria, Pertussis, Tetanus Vaccination: Yes Hx Pneumococcal Vaccination: 08/03/10 Vertical Provider Document - CONSTITUTIONAL Notes: PHYSICAL EXAMINATION: GENERAL: Well-appearing, well-nourished and in no acute distress. HEAD: Atraumatic, normocephalic. EYES: Pupils equal round extraocular movements intact, conjunctiva are normal. ENT: Nares patent NECK: Normal range of motion LUNGS: No respiratory distress Musculoskeletal: Tenderness to the left medial and lateral knee. No obvious crepitus or deformity. Tenderness with range of motion per. No erythema or heat to the area. NEUROLOGICAL: Normal speech. PSYCH: Normal mood, normal affect. SKIN: Warm, Dry, normal turgor, no rashes or lesions noted. - INFECTION CONTROL TRAVEL OUTSIDE OF THE [place] IN LAST 30 DAYS: No Course - Re-evaluation Re-evalutation: Knee X-Ray 12/18/19 12:31 IMPRESSION: No acute fracture or dislocation of the left knee. Moderate tricompartmental osteoarthritis. - Vital Signs Vital signs: Temp Pulse Resp BP Pulse Ox 98.6 F 105 H 18 140/69 H 92 12/18/19 12:28 12/18/19 12:08 12/18/19 12:08 12/18/19 12:08 12/18/19 12:08 Procedures - Immobilization left knee Pre-Proc Neuro Vasc Exam: Normal Immobilizer type: Keith wrap Performed by: PCT Alignment checked and good: Yes Discharge - Discharge Clinical Impression: Knee pain Qualifiers: Chronicity: acute Laterality: left Qualified Code(s): M25.562 - Pain in left knee Osteoarthritis of left knee Qualifiers: Osteoarthritis type: unspecified Qualified Code(s): M17.12 - Unilateral primary osteoarthritis, left knee Condition: Stable Disposition: HOME, SELF-CARE Additional Instructions: Osteoarthritis of the Knee Your symptoms are due to osteoarthritis. Osteoarthritis is inflammation caused by "wear and tear" of the joints. There is no cure for osteoarthritis, but medicine can help the pain and stiffness. It's important to keep the joints moving. Move the joints through their full range daily. Light exercise helps, but if exercise hurts, switch to a non-impact exercise like swimming. Local warmth may help ease pain. Call or return if any joint becomes severely swollen or increasingly painful, or if you have fever or spreading redness. Please take pain medication as prescribed. Please use caution as it may cause dizziness. Please call and schedule an appointment with an orthopedic provider. Call them Thursday morning. I have given you the number for 2 different orthopedics here in [facility]. You may also safely take ibuprofen for pain. Prescriptions: Hydrocodone/Acetaminophen [[place] 5-325 mg Tablet] 1 tab PO Q6H #10 tablet Referrals: RAUL KHANNA JR, DO [ACTIVE PROVISIONAL STAFF] - Follow up as needed LOUIS ANGEL DO [ACTIVE STAFF] - Follow up as needed
[2019-12-18 14:10] VITALS: BP 137/66
== END 2019-12-18 14:10 | disposition home or self-care (01) ==
LOC: ER 12:02
DX: M17.12 Unilateral primary osteoarthritis, left knee (principal); M25.562 Pain in left knee; X50.9XXA Other and unspecified overexertion or strenuous movements or postures, initial encounter; J45.909 Unspecified asthma, uncomplicated
CPT/HCPCS: 99283; 73564; A9270